=== PATIENT | female | born 1965 | race Caucasian/White ===

== ENCOUNTER 2017-12-22 04:39 | Emergency (ER) | payer MEDICARE ==
[~2017-12-22] VITALS: Ht 152.4 cm; Wt 86.9 kg
[~2017-12-22 04:39] MED LIST: CITALOPRAM HBR40 MG PO; LISINOPRIL10 MG PO; LORTAB 5-325 M1 EACH PO; MEDROL DOSEPAK4 MG PO; MEGESTROL ACETA20 MG PO; MELOXICAM7.5 MG PO; NEURONTIN300 MG PO; PRILOSEC OTC20 MG PO; PROPRANOLOL HCL10 MG PO; PROPRANOLOL HCL60 M1 PO
[2017-12-22 07:17] LABS: APPEARANCE SL.HAZY ((CLEAR)); BILIRUBIN NEGATIVE; BLOOD NEGATIVE; COLOR YELLOW ((YELLOW)); GLUCOSE (STRIP) NEGATIVE; KETONES NEGATIVE; LEUKOCYTES TRACE; NITRITE NEGATIVE; PROTEIN (STRIP) 30; SPECIFIC GRAVITY 1.027 (1.000-1.030); UROBILINOGEN 0.2 MG/DL (0.2-1.0)
[2017-12-22 07:32] LABS: BACTERIA NONE SEEN /HPF; EPITHELIAL CELLS 4+ /HPF; MUCUS TRACE /LPF; RED BLOOD CELLS NONE SEEN /HPF (0-5)
[2017-12-22] MEDS ORDERED: PERCOCET 5/31 TABLET PO ×2 (11:21→11:46)
[2017-12-22] MEDS ORDERED: BACTRIM,SEPT1 TABLET PO (11:48)
[2017-12-22 12:20] VITALS: BP 108/63
== END 2017-12-22 12:23 | disposition home or self-care (01) ==
LOC: EME 04:39
PROVIDERS: Emergency Medicine
DX: M54.5 Low back pain (principal); M79.604 Pain in right leg; F32.9 Major depressive disorder, single episode, unspecified; I10 Essential (primary) hypertension; K21.9 Gastro-esophageal reflux disease without esophagitis; F41.9 Anxiety disorder, unspecified; Z90.49 Acquired absence of other specified parts of digestive tract; Z87.891 Personal history of nicotine dependence; Z87.442 Personal history of urinary calculi
CPT/HCPCS: 72148; 81003; 99281; 99285; J1885; J2270